=== PATIENT | male | born 1950 | race Caucasian/White ===

== ENCOUNTER 2024-11-22 13:21 | Outpatient (CLI) | payer OTHER ==
[~2024-11-22 13:21] MED LIST: Magnevist 469MG/ML 20 ML VIAL ONE
== END 2024-11-22 13:22 | disposition home or self-care (01) ==
LOC: CSHMRI 13:21
PROVIDERS: ATTEND Urology
DX: R97.20 Elevated prostate specific antigen [PSA] (principal)
CPT/HCPCS: 72197; 82565